=== PATIENT | male | born 2000 | race Caucasian/White ===

== ENCOUNTER 2025-06-07 15:48 | Emergency (ER) | payer OTHER, SELFPAY ==
[2025-06-07 15:48] VITALS: BP 142/77; PULSE 94; RESP 22; TEMP 36.6; O2SAT 100
[2025-06-07 16:26] VITALS: BMI 23.1
--- NOTE | 2025-06-07 16:33 | CT_ITS ---
PROCEDURE: ABDOMEN/PELVIS W IV CONT ONLY 06/07/2025 REASON FOR EXAM: RLQ PAIN, RULE OUT APPY TECHNIQUE: Procedure Code: [id number] Modality: CT Procedure: ABDOMEN/PELVIS W IV CONT ONLY Coronal and Sagittal reconstruction series were provided. CONTRAST: 100 mL of Isovue 370 One or more dose reduction techniques were used (e.g., Automated exposure control, adjustment of the mA and/or kV according to patient size, use of iterative reconstruction technique. RADIATION DOSE SUMMARY: DLP: 511 mGycm COMPARISON: None FINDINGS: Limited sections of the lung bases demonstrate no focal pulmonary mass or consolidations. The liver, spleen, pancreas, and both adrenal glands demonstrate no acute findings. The gallbladder is unremarkable. The stomach is unremarkable. The small bowel loops are not dilated. The appendix is not clearly identified, although there are no secondary signs of appendicitis. No colonic obstruction. There is no free air or significant free fluid. 3-4 mm obstructive stone at the right UVJ with associated mild hydroureteronephrosis. Mildly thickened urinary bladder wall which may reflect cystitis vs nondistention; consider correlation with urinalysis. The pelvic structures are intact. There is no solid pelvic mass. No significant lymphadenopathy. The aorta and IVC demonstrate no acute findings. Visualized osseous structures demonstrate no acute abnormality. Bilateral L5 pars defects. CT/Abdomen/Pelvis W IV Cont ONLY IMPRESSION: 3-4 mm obstructive stone at the right UVJ with associated mild hydroureteroneph rosis. Mildly thickened urinary bladder wall which may reflect cystitis vs nondistenti on; consider correlation with urinalysis. The appendix is not clearly identified, although there are no secondary signs o f appendicitis. Reading Location: [id number]
--- NOTE | 2025-06-07 16:35 | ED.VIS.GI ---
HPI HPI - GI History of Present Illness Chief Complaint: Abd Pain Narrative Narrative: Patient is a 25-year-old male presenting to the emergency department for right lower quadrant pain that started at 1 PM today. Patient has no significant past medical history. Denies any past abdominal surgical history. Patient states that the pain started at 1 PM and has been constant since. He denies taking anything prior for pain control. Denies fever, chills, nausea, vomiting, constipation, diarrhea, dysuria or hematuria. States he had a bowel movement this morning that was normal and nonbloody. He denies any pain in his testicles, denies any testicular swelling or redness. Denies any radiation of the pain to his flanks or back. States it stays in the right lower abdomen. PFSH PFSH Medical History no medical history Home Medications ?Medication ?Instructions ?Recorded ?Last Taken ?Type ondansetron 4 mg disintegrating 4 mg PO Q8H PRN PRN Nausea #10 tabs 06/07/25 Unknown Rx tablet oxycodone-acetaminophen 5 mg-325 1 tab PO Q8H PRN pain 3 days #10 06/07/25 Unknown Rx mg tablet (Percocet) tabs tamsulosin 0.4 mg capsule (Flomax) 0.4 mg PO QHS 14 days #14 caps 06/07/25 Unknown Rx Allergy/AdvReac Type Severity Reaction Status Date / Time No Known Allergies Allergy Verified 06/07/25 15:50 Social History Smoking Status: Never smoker ROS ROS ED ROS Narrative see HPI EXAM Physical Exam Narrative Exam Narrative: Vital signs: Reviewed General: Alert and oriented x 3. Distress due to pain. HEENT: Head is normocephalic and atraumatic, sinuses nontender, pupils equal round and reactive. Nares are patent. Oropharynx and throat exams normal. Neck: Supple without lymphadenopathy nontender Cardiovascular: Regular rate and rhythm, no murmurs. No rubs or gallops. Normal S1 and S2 Respiratory: Clear to auscultation bilaterally. No wheezes, rales, rhonchi Abdominal: Soft and tender to palpation in the right lower quadrant. Normal bowel sounds. There is voluntary guarding and rebound tenderness noted in the right lower quadrant. No CVA tenderness to palpation. Extremities: No tenderness. No bruising. Normal range of motion. Normal sensation. Skin: No rash or redness. Neurological: Cranial nerves II through XII are grossly intact. Normal strength and sensation. Normal cerebellar function The rest of the physical exam is unremarkable Const Vital Signs: 06/07/25 15:48 06/07/25 17:29 06/07/25 19:00 Temperature 98 F Temperature Source Temporal Pulse Rate 94 91 89 Respiratory Rate 22 H 18 16 Blood Pressure 142/77 H 148/99 H 140/97 H Blood Pressure Mean 98 115 111 Pulse Ox 100 99 96 Oxygen Delivery Method Room Air Room Air Room Air 06/07/25 21:45 Temperature 97.8 F Temperature Source Pulse Rate 80 Respiratory Rate 15 Blood Pressure 143/90 H Blood Pressure Mean 107 Pulse Ox 99 Oxygen Delivery Method MDM MDM MDM Narrative Medical decision making narrative: Patient is a 25-year-old male presenting to the emergency department for right lower quadrant abdominal pain. Patient was seen and examined. Vitals are stable. Patient is resting in bed however does appear uncomfortable due to pain. Differential includes but is not limited to: Appendicitis, colitis, nephrolithiasis, pyelonephritis, UTI Patient was given morphine for analgesia, is not nauseous and has had no vomiting. Fluid bolus started. About 1 hour after administration of morphine, patient was still in significant pain, Dilaudid was given. Labs and CT imaging ordered. CBC with mild leukocytosis of 15.9 and normal hemoglobin. CMP with mild elevation in BUN and creatinine at 20 and 1.28. Mild anion gap 21. Bicarb 18.2. Lipase within normal limits. Urinalysis with no evidence of urinary tract infection. Given the bicarb and anion gap findings, beta hydroxybutyrate and VBG was added on with no evidence of acidosis and negative ketones. CT of the abdomen pelvis shows 3-4 mm obstructive stone at the right UVJ with associated mild hydroureteronephrosis. Mildly thickened urinary bladder wall which may reflect cystitis vs nondistention; consider correlation with urinalysis. The appendix is not clearly identified, although there are no secondary signs of appendicitis. Patient was reevaluated and still in significant pain, Toradol was given. Discussed the findings with the patient and family at bedside. I explained that given the size of the stone will likely pass however it is at the UVJ which stones will commonly get stuck at. I did recommend admission given the patient's intractable pain. We do not have urology on-call. [employer] looked at the urology on-call schedule and there is no one on-call for the rest of the month. Attempted to admit to hospitalist however they recommended transfer for urology consult. I did speak with [facility] urologist and hospitalist accepted the patient for transfer however on reevaluation of the patient he states that his pain is much improved. He is asking to go home. I recommended admission given his multiple doses of pain medication here however I explained that if his BMP shows improvement in his anion gap bicarb then he can go home with pain medication and Flomax. BMP shows improvement of the bicarb and anion gap with stable mild VOLODYMYR. It is not significant. Patient will be prescribed Zofran, Percocet and Flomax for home. Instructed to take Motrin every 6-8 hours for pain control. Recommended lots of fluids at home. Provided urine strainer for home. Also explained to patient this may be early appendicitis and they need to monitor at home for any changes. Recommended return to the emergency department with any pain that is intractable or intractable nausea and vomiting. Patient discharged from the Emergency Department. I do not feel that the patient's evaluation reveals any acute reason for admission at this time. I instructed them to either follow-up with their primary care physician or promptly return to the Emergency Department for reevaluation should symptoms worsen or new symptoms develop. I explained what symptoms would indicate the need to return to the emergency department. Shared decision making was used. The patient voiced understanding of the treatment plan and is agreeable with it. Clinical impression Right sided nephrolithiasis History & Record Review Discussion w/independent historian: Patient and Family Lab Data Attestation: I reviewed the patient's lab results. Labs: Laboratory Results - last 24 hr 06/07/25 06/07/25 06/07/25 16:00 16:40 18:40 WBC 15.9 H RBC 5.42 Hgb 15.8 Hct 46.0 MCV 84.9 MCH 29.2 MCHC 34.3 RDW Std Deviation 37.0 RDW Coeff of Dae 12.0 Plt Count 335 MPV 8.8 Immature Gran % (Auto) 0.700 Neut % (Auto) 79.8 H Lymph % (Auto) 11.2 L Rich % (Auto) 7.9 Eos % (Auto) 0.1 Baso % (Auto) 0.3 Absolute Neuts (auto) 12.7 H Absolute Lymphs (auto) 1.79 Nucleated RBC % 0 Sodium 138 Potassium 3.4 Chloride 99 Carbon Dioxide 18.2 L Anion Gap 21 H BUN 20 H Creatinine 1.28 H Estim Creat Clear Calc 89.51 Est GFR (MDRD) Non-Af 79 BUN/Creatinine Ratio 15.9 Glucose 198 H Calcium 10.2 Total Bilirubin 0.41 AST 26 ALT 28 Alkaline Phosphatase 76 Total Protein 8.3 Albumin 5.0 Globulin 3.3 Albumin/Globulin Ratio 1.5 Lipase 32 b-Hydroxybutyric mmol/L 0.2 Urine Color Yellow Urine Clarity Clear Urine pH 7.0 Ur Specific [place] 1.010 Urine Protein 30 H Urine Glucose (UA) 100 H Urine Ketones 50 H Urine Occult Blood 10 H Urine Nitrite Negative Urine Bilirubin Negative Urine Urobilinogen Normal Ur Leukocyte Esterase Negative 06/07/25 20:30 WBC RBC Hgb Hct MCV MCH MCHC RDW Std Deviation RDW Coeff of Dae Plt Count MPV Immature Gran % (Auto) Neut % (Auto) Lymph % (Auto) Rich % (Auto) Eos % (Auto) Baso % (Auto) Absolute Neuts (auto) Absolute Lymphs (auto) Nucleated RBC % Sodium 139 Potassium 4.8 Chloride 104 Carbon Dioxide 23.7 Anion Gap 11 BUN 20 H Creatinine 1.32 H Estim Creat Clear Calc 86.80 Est GFR (MDRD) Non-Af 76 BUN/Creatinine Ratio 14.8 Glucose 129 H Calcium 9.3 Total Bilirubin AST ALT Alkaline Phosphatase Total Protein Albumin Globulin Albumin/Globulin Ratio Lipase b-Hydroxybutyric mmol/L Urine Color Urine Clarity Urine pH Ur Specific [place] Urine Protein Urine Glucose (UA) Urine Ketones Urine Occult Blood Urine Nitrite Urine Bilirubin Urine Urobilinogen Ur Leukocyte Esterase ABG Data ABG results: ABG 06/07/25 18:44 Specimen Type PIERRE Sample Site Not entered VBG pH 7.38 VBG pO2 39 VBG HCO3 24 VBG Total CO2 25 VBG O2 Sat (Calc) 72 H VBG Base Excess -2 L POC Mix VBG pCO2 Pt Tmp 39.5 L O2 Delivery Device Room Air Radiography Diagnostic Testing: Clinical Impression(s) from Imaging Studies Abdomen/Pelvis CT 06/07/25 16:33 IMPRESSION: 3-4 mm obstructive stone at the right UVJ with associated mild hydroureteronephrosis. Mildly thickened urinary bladder wall which may reflect cystitis vs nondistention; consider correlation with urinalysis. The appendix is not clearly identified, although there are no secondary signs of appendicitis. Reading Location: [facility] Discharge Plan Triage Chief Complaint: Abd Pain ED Provider: Lida Harrington Dx/Rx/DC Orders Clinical Impression: Right nephrolithiasis Instructions: ED Kidney Stone with Pain Prescriptions: New tamsulosin [Flomax] 0.4 mg capsule 0.4 mg PO QHS 14 Days Qty: 14 0RF oxycodone-acetaminophen [Percocet] 5-325 mg tablet 1 tab PO Q8H PRN (Reason: pain) 3 Days Qty: 10 0RF ondansetron 4 mg tablet,disintegrating 4 mg PO Q8H PRN PRN (Reason: Nausea) Qty: 10 0RF Primary Care Provider: Care Physician,No Primary Referrals: Marin Mckenzie MD [Med Staff - Active Staff, Urology] - As soon as possible Care Physician,No Primary [Primary Care Provider, Medical] Activity Restrictions/Additional Instructions: Drink lots of fluids at home. Take Motrin every 6-8 hours for pain control. If this does not control your pain you can then take Percocet. Do not take this with Tylenol as it already has Tylenol in it. Take the Flomax nightly for the next 14 days. Follow-up with the urologist as soon as possible listed below. If you develop pain that is not controlled with the pain medications provided, uncontrolled nausea and vomiting or fevers you need to return to the emergency department immediately. Print Language: Citizen Of [place] Disposition Disposition: Home, Self Care Discharge Date/Time: 06/07/25 22:06
[2025-06-07] MEDS: 0.9% Normal Saline (1000mL) 1,000 ML 999 ML IV (16:39)
[2025-06-07 16:45] LABS: Hematocrit 46.0 % (40-54); Hemoglobin 15.8 g/dL (13.0-16.5); Immature Granulocytes Count 0.110 X10^3/uL (0.0-0.0); Mean Corp Hgb Conc 34.3 g/dL (32-36); Mean Corpuscular Volume 84.9 fL (80-94); Mean Platelet Vol. 8.8 fl (6.2-12.0); NRBC Flagged by Analyzer 0 % (0-5); Platelet Count 335 K/mm3 (150-450); RBC Distribution Width CV 12.0 % (11.6-14.6); RBC Distribution Width SD 37.0 fl (35.1-43.9); Red Blood Count 5.42 M/mm3 (4.6-6.2); White Blood Count 15.9 K/mm3 (4.4-11.0)
[2025-06-07 16:59] LABS: Color, Urine Yellow (Yellow); Glucose, Dipstick 100 mg/dl (Normal); Ketone-Dipstick 50 mg/dl (Negative); Leukocyte Esterase-Dipstick Negative /ul (Negative); Nitrite-Dipstick Negative (Negative); Occult Blood-Urine 10 /ul (Negative); Protein-Dipstick 30 mg/dl (Negative); Specific Gravity, Urine 1.010 (1.002-1.030); Urine Bilirubin Dipstick Negative (Negative)
[2025-06-07 17:06] LABS: AST(SGOT) 26 U/L (<=37); Alanine Aminotransfer ALT/SGPT 28 U/L (<=46); Albumin, Serum 5.0 g/dL (3.5-5.0); Alkaline Phosphatase 76 U/L (40-129); Anion Gap 21 (5-15); BUN 20 mg/dL (4-19); BUN/Creat Ratio 15.9 RATIO (10-20); Calcium,Total 10.2 mg/dL (7.6-11.0); Carbon Dioxide 18.2 mmol/L (21.0-32.0); Chloride 99 mmol/L (98-108); Estimated Creatinine Clearance 89.51 ml/min (50-250); Globulin 3.3 g/dL (2.2-4.2); Glucose 198 mg/dL (70-99); Lipase 32 U/L (13-75); Potassium 3.4 mmol/L (3.3-5.1)
[2025-06-07 17:29] VITALS: BP 148/99; PULSE 91; RESP 18; O2SAT 99
[2025-06-07 18:48] LABS: SITE Not entered; VBG BASE EXCESS -2 mmol/L (-1.0-3.5); VBG PO2 39 mmHg (25-40); VBG SO2 72 % (50-70); VBG TCO2 25 mmol/L (23-33)
[2025-06-07 19:00] VITALS: BP 140/97; PULSE 89; RESP 16; O2SAT 96
[2025-06-07 19:01] LABS: BETA-HYDROXYBUTYRATE 0.2 mmol/L (0.0-0.3)
[2025-06-07 21:03] LABS: Anion Gap 11 (5-15); BUN 20 mg/dL (4-19); BUN/Creat Ratio 14.8 RATIO (10-20); Calcium,Total 9.3 mg/dL (7.6-11.0); Carbon Dioxide 23.7 mmol/L (21.0-32.0); Chloride 104 mmol/L (98-108); Estimated Creatinine Clearance 86.80 ml/min (50-250); Glucose 129 mg/dL (70-99); Potassium 4.8 mmol/L (3.3-5.1)
[2025-06-07 21:45] VITALS: BP 143/90; PULSE 80; RESP 15; TEMP 36.6; O2SAT 99
== END 2025-06-07 22:06 | disposition home or self-care (01) ==
PROVIDERS: Emergency Provider Student in an Organized Health Care Education/Training Program; Visit Provider Student in an Organized Health Care Education/Training Program
DX: N13.2 Hydronephrosis with renal and ureteral calculous obstruction (principal)
CPT/HCPCS: 74177; 80048; 80053; 81002; 82010; 82803; 83690; 85025; 96361; 96374; 96375; 99283; Q9967; A4216